=== PATIENT | male | born 1990 | race African-American/Black ===

== ENCOUNTER 2017-01-30 15:14 | Emergency (ER) | payer MEDICAID ==
[~2017-01-30] VITALS: Ht 167.6 cm; Wt 75.0 kg
[~2017-01-30 15:14] MED LIST: ADVAIR; ALBUTEROL; [UNRECOGNIZED DRUG - OTHER]
[2017-01-30] MEDS ORDERED: ONDANSETRON HCL 4MG/2ML VIAL IV STA (15:52)
[2017-01-30] MEDS ORDERED: SODIUM CHLORIDE 0.9% 1,000 ML IV ONE ×2 (15:52→16:29)
[2017-01-30] MEDS ORDERED: ONDANSETRON HCL 4MG/2ML VIAL IV ONE (16:30)
[2017-01-30 17:04] LABS: BASOPHILS % 0.5 % (0.0-2.0); DIFFERENTIAL COMMENT 0; EOSINOPHILS % 4.2 % (0.0-5.0); HEMATOCRIT. 49.7 % (42.0-52.0); HEMOGLOBIN. 14.8 g/dL (14.0-18.0); LYMPHOCYTES % 27.1 % (20.0-50.0); MEAN CORPUSCULAR HEMOGLOBIN 26.3 pg (28.0-32.0); MEAN CORPUSCULAR HGB CONC 29.8 g/dL (31.0-37.0); MEAN CORPUSCULAR VOLUME 88.1 fL (80.0-94.0); MEAN PLATELET VOLUME 8.6 fl (7.4-10.4); MONOCYTES % 11.4 % (2.0-8.0); NEUTROPHILS % 56.8 % (40.0-76.0); PLATELET 199 x1000/uL (130-400); RED BLOOD CELL COUNT 5.64 mill/uL (4.7-6.1); RED CELL DISTRIBUTION WIDTH 13.7 % (11.6-14.6); WHITE BLOOD COUNT 6.8 x1000/uL (4.5-11.0)
[2017-01-30 17:05] LABS: ALANINE AMINOTRANSFERASE 24 IU/L (13-61); ALBUMIN 3.6 g/dL (3.4-5.0); ANION GAP 14; CALCIUM 8.7 mg/dL (8.5-10.1); CARBON DIOXIDE 21 mEq/L (21-32); CHLORIDE 104 mEq/L (98-107); INDEX HEMOLYSI 3 (1-3); INDEX ICTERIC 1 (1-4); INDEX LIPEMIC 1 (1-3); LIPASE 65 IU/L (73-393); UREA NITROGEN BLOOD 6 mg/dL (7-21); eGFR > 60 mL/min (>60)
[2017-01-30 19:31] VITALS: BP 136/90
== END 2017-01-30 20:52 | disposition home or self-care (01) ==
LOC: ER 15:27
DX: K52.9 Noninfective gastroenteritis and colitis, unspecified (principal); R11.2 Nausea with vomiting, unspecified; Z91.018 Allergy to other foods
CPT/HCPCS: 36415; 80053; 83690; 85025; 93005; 96374; 99285; J2405; J7030

== ENCOUNTER 2020-02-25 21:42 | Emergency (ER) | payer MEDICAID ==
[~2020-02-25] VITALS: Ht 167.6 cm; Wt 86.3 kg
[2020-02-25 21:59] VITALS: BP 131/80
== END 2020-02-25 23:04 | disposition home or self-care (01) ==
LOC: ER 21:48
DX: R68.89 Other general symptoms and signs (principal); J45.909 Unspecified asthma, uncomplicated
CPT/HCPCS: 99281

== ENCOUNTER 2020-07-13 11:17 | Emergency (ER) | payer MEDICAID ==
[~2020-07-13] VITALS: Ht 172.7 cm; Wt 77.0 kg
[2020-07-13] MEDS ORDERED: IBUPROFEN 600MG TABLET PO ONE (12:15)
[2020-07-13 13:59] VITALS: BP 122/79
== END 2020-07-13 14:05 | disposition home or self-care (01) ==
LOC: ER 11:17
DX: S50.811A Abrasion of right forearm, initial encounter (principal); F20.9 Schizophrenia, unspecified; J45.909 Unspecified asthma, uncomplicated; W05.1XXA Fall from non-moving nonmotorized scooter, initial encounter; Y93.89 Activity, other specified; Y92.89 Other specified places as the place of occurrence of the external cause
CPT/HCPCS: 73090; 93005; 99283

== ENCOUNTER 2022-06-12 18:22 | Emergency (ER) | payer MEDICAID ==
[~2022-06-12] VITALS: Ht 167.6 cm; Wt 82.0 kg
[~2022-06-12 18:22] MED LIST changes: +DICY20TA2 MT; +METO-293 PO
[2022-06-12 18:28] VITALS: BP 151/94
== END 2022-06-12 20:00 | disposition left against medical advice (07) ==
LOC: ER 18:22
DX: Z53.21 Procedure and treatment not carried out due to patient leaving prior to being seen by health care provider (principal)

== ENCOUNTER 2023-05-18 11:15 | Emergency (ER) | payer MEDICAID ==
[~2023-05-18] VITALS: Ht 167.6 cm; Wt 82.0 kg
[2023-05-18 11:30] VITALS: TEMP 98.5; O2SAT 100
[2023-05-18] MEDS ORDERED: KETOROLAC 60MG/2ML VIAL IM STA (14:05)
[2023-05-18] MEDS ORDERED: BACITRACIN ZINC OINT UDPKT TOP ONE (14:15)
[2023-05-18] MEDS ORDERED: LIDOCAINE HCL/PF 1% 10 MG/ML 5ML VIAL INFIL ONE (14:15)
[2023-05-18 17:02] VITALS: BP 118/85; PULSE 72; RESP 18
[2023-05-18] MEDS ORDERED: ACETAMINOPHEN WITH CODEINE 300/30MG TABLET PO STA (17:02)
[2023-05-18] MEDS ORDERED: NAPR-681 PO (18:49)
== END 2023-05-18 19:03 | disposition home or self-care (01) ==
LOC: ER 13:08
DX: S51.811A Laceration without foreign body of right forearm, initial encounter (principal); S80.812A Abrasion, left lower leg, initial encounter; Y08.89XA Assault by other specified means, initial encounter; Y93.89 Activity, other specified; Y92.89 Other specified places as the place of occurrence of the external cause; J45.909 Unspecified asthma, uncomplicated
CPT/HCPCS: 73090; 96372; 99283; J1885; J3490; Z7610